=== PATIENT | female | born 1970 | race Caucasian/White ===

== ENCOUNTER 2018-02-09 16:02 | Emergency (ER) | payer OTHER ==
[~2018-02-09] VITALS: Ht 170.2 cm; Wt 72.7 kg
[~2018-02-09 16:02] MED LIST: FLOMAX0.4 MG PO; LINZESS145 MCG PO; PROZAC20 MG PO; SENNA8.6 MG PO; TOPAMAX50 MG PO; VICODIN,LORT1 TABLET PO; WELLBUTRIN75 MG PO; ZOFRAN4 MG PO; zoloft PO
[2018-02-09 16:54] LABS: HEMOGLOBIN 14.5 G/DL (11.9-15.5); MCH 30.2 PG (29.0-34.0); MCHC 34.5 G/DL (30.0-36.0); MCV 87.5 FL (83-99); PLATELET COUNT 184 K/uL (156-360); RBC DIS.WIDTH-CV 12.8 % (11.8-14.6); RBC DIS.WIDTH-SD 41.3 % (39-53); WHITE BLOOD COUNT 9.5 K/uL (4.1-10.2)
[2018-02-09 17:06] LABS: ALBUMIN 4.1 g/dL (3.2-4.8)
[2018-02-09 17:07] LABS: CHLORIDE 112 mEq/L (99-109); POTASSIUM 3.7 mEq/L (3.7-5.4); SODIUM 140 mEq/L (136-147)
[2018-02-09 17:09] LABS: GLUCOSE 115 mg/dL (70-99); TOTAL PROTEIN 6.5 g/dL (6.4-8.3)
[2018-02-09 17:11] LABS: TOTAL BILIRUBIN 0.4 mg/dL (0.0-1.0)
[2018-02-09 17:12] LABS: ALKALINE PHOSPHATASE 52 IU/L (3-129)
[2018-02-09 17:13] LABS: CREATININE 0.8 mg/dL (0.6-1.3); GFR ESTIMATE (CALCULATED) > 59 mL/min/
[2018-02-09 17:14] LABS: AST (GOT) 13 IU/L (2-34); UREA NITROGEN (BUN) 14 mg/dL (9-23)
[2018-02-09 17:15] LABS: ALT (GPT) 9 IU/L (3-49)
[2018-02-09 18:05] LABS: APPEARANCE CLEAR ((CLEAR)); BILIRUBIN NEGATIVE; BLOOD MODERATE; COLOR COLORLESS ((YELLOW)); GLUCOSE (STRIP) NEGATIVE; KETONES NEGATIVE; LEUKOCYTES NEGATIVE; NITRITE NEGATIVE; PROTEIN (STRIP) NEGATIVE; SPECIFIC GRAVITY 1.002 (1.000-1.030); UROBILINOGEN 0.2 MG/DL (0.2-1.0)
[2018-02-09 18:17] LABS: BACTERIA NONE SEEN /HPF; EPITHELIAL CELLS NONE SEEN /HPF; MUCUS NONE SEEN /LPF; RED BLOOD CELLS 0-5 /HPF (0-5); UCUL ADDED? NO; WHITE BLOOD CELLS 0-5 /HPF (0-5)
[2018-02-09] MEDS ORDERED: NORCO 5/3251 TABLET PO (19:29)
[2018-02-09 20:01] VITALS: BP 124/85
[2018-02-10] MEDS ORDERED: ZOFRAN ODT4 MG PO (21:53)
[2018-02-10] MEDS ORDERED: NAPROSYN500 MG PO (21:53)
[2018-02-10] MEDS ORDERED: ALPRAZOLAM0.5 MG PO (23:20)
[2018-02-10] MEDS ORDERED: TOPAMAX200 MG PO (23:21)
[2018-02-10] MEDS ORDERED: BUPROPION XL300 MG PO (23:21)
[2018-02-10] MEDS ORDERED: RIZATRIPTAN10 M1 PO (23:22)
== END 2018-02-09 20:02 | disposition home or self-care (01) ==
LOC: EME 16:02
PROVIDERS: Emergency Medicine Emergency Medical Services
DX: N13.2 Hydronephrosis with renal and ureteral calculous obstruction (principal); R30.0 Dysuria; Z87.442 Personal history of urinary calculi; Z98.51 Tubal ligation status
CPT/HCPCS: 74176; 80053; 81003; 85027; J0780; J2270; J7040

== ENCOUNTER 2018-02-10 18:38 | Inpatient (IN) | payer OTHER ==
[~2018-02-10] VITALS: Ht 170.2 cm; Wt 83.7 kg
[~2018-02-10 18:38] MED LIST changes: +NORCO 5/3251 TABLET PO
[2018-02-10 21:23] LABS: APPEARANCE CLEAR ((CLEAR)); BILIRUBIN NEGATIVE; BLOOD SMALL; COLOR AMBER ((YELLOW)); GLUCOSE (STRIP) NEGATIVE; KETONES 20; LEUKOCYTES NEGATIVE; NITRITE NEGATIVE; PROTEIN (STRIP) 30; SPECIFIC GRAVITY 1.026 (1.000-1.030); UROBILINOGEN 0.2 MG/DL (0.2-1.0)
[2018-02-10 21:26] LABS: BACTERIA RARE /HPF; EPITHELIAL CELLS RARE /HPF; MUCUS TRACE /LPF; RED BLOOD CELLS 0-5 /HPF (0-5)
[2018-02-10] MEDS ORDERED: NAPROSYN500 MG PO (21:53)
[2018-02-10] MEDS ORDERED: ZOFRAN ODT4 MG PO (21:53)
[2018-02-10] MEDS ORDERED: ALPRAZOLAM0.5 MG PO (23:20)
[2018-02-10] MEDS ORDERED: BUPROPION XL300 MG PO (23:21)
[2018-02-10] MEDS ORDERED: TOPAMAX200 MG PO (23:21)
[2018-02-10] MEDS ORDERED: RIZATRIPTAN10 M1 PO (23:22)
[2018-02-10 23:49] LABS: HEMATOCRIT 38.7 % (36.0-46.0); HEMOGLOBIN 13.2 G/DL (11.9-15.5); MCH 30.3 PG (29.0-34.0); MCHC 34.1 G/DL (30.0-36.0); MCV 88.8 FL (83-99); RBC DIS.WIDTH-CV 12.9 % (11.8-14.6); RBC DIS.WIDTH-SD 42.6 % (39-53); RED BLOOD COUNT 4.36 M/uL (3.80-5.20); WHITE BLOOD COUNT 4.5 K/uL (4.1-10.2)
[2018-02-10 23:54] LABS: CHLORIDE 110 mEq/L (99-109); POTASSIUM 4.3 mEq/L (3.7-5.4); SODIUM 140 mEq/L (136-147)
[2018-02-10 23:56] LABS: GLUCOSE 143 mg/dL (70-99)
[2018-02-11] VITALS (8 sets, daily range): BP systolic 90–125; BP diastolic 55–78
[2018-02-11] LABS: GFR ESTIMATE (CALCULATED) 46 mL/min/; UREA NITROGEN (BUN) 13 mg/dL (9-23)
[2018-02-11 00:07] LABS: CREATININE 1.3 mg/dL (0.6-1.3)
[2018-02-11 00:08] LABS: QUANTITATIVE HCG < 4.0 MIU/ML
[2018-02-11 01:34] LABS: PLAT.SUFFICIENCY ADEQUATE
[2018-02-11 01:59] LABS: PLATELET COUNT 80 K/uL (156-360)
[2018-02-11 09:22] LABS: HEMATOCRIT 39.5 % (36.0-46.0); HEMOGLOBIN 13.3 G/DL (11.9-15.5); MCH 29.9 PG (29.0-34.0); MCHC 33.7 G/DL (30.0-36.0); MCV 88.8 FL (83-99); PLATELET COUNT 68 K/uL (156-360); RBC DIS.WIDTH-CV 13.2 % (11.8-14.6); RBC DIS.WIDTH-SD 43.3 % (39-53); RED BLOOD COUNT 4.45 M/uL (3.80-5.20); WHITE BLOOD COUNT 7.9 K/uL (4.1-10.2)
[2018-02-11 09:45] LABS: ALBUMIN 2.9 G/DL (3.2-4.8); ALKALINE PHOSPHATASE 73 IU/L (3-129); ALT (GPT) 11 IU/L (3-49); AST (GOT) 24 IU/L (2-34); CHLORIDE 107 MEQ/L (99-109); CREATININE 1.7 MG/DL (0.6-1.3); GFR ESTIMATE (CALCULATED) 34 mL/min/; GLUCOSE 146 mg/dL (70-99); POTASSIUM 3.5 MEQ/L (3.7-5.4); SODIUM 138 MEQ/L (136-147); TOTAL BILIRUBIN 1.2 MG/DL (0.0-1.0); TOTAL PROTEIN 4.8 G/DL (6.4-8.3)
[2018-02-11 09:51] LABS: ABS NEUTROPHIL COUNT 6.9; ANISOCYTOSIS NONE SEEN; BAND NEUTROPHILS 34.2 % (0-8.0); BURR CELLS 2+; EOSINOPHIL ABS CT 0; LYMPHOCYTES 0.9 % (15.0-45.0); METAMYELOCYTES 8.8 %; MYELOCYTES 3.5 %; PLAT.SUFFICIENCY DECREASED; POIKILOCYTOSIS 2+; SEG.NEUTROPHILS 52.6 % (46.0-76.0); SMUDGE CELLS 0.9
[2018-02-11 10:16] LABS: UREA NITROGEN (BUN) 22 mg/dL (9-23)
[2018-02-12 04:16] VITALS: BP 92/53
[2018-02-12 06:09] LABS: HEMATOCRIT 33.5 % (36.0-46.0); HEMOGLOBIN 11.4 G/DL (11.9-15.5); MCH 29.7 PG (29.0-34.0); MCV 87.2 FL (83-99); PLATELET COUNT 52 K/uL (156-360); RBC DIS.WIDTH-CV 13.3 % (11.8-14.6); RBC DIS.WIDTH-SD 42.2 % (39-53); RED BLOOD COUNT 3.84 M/uL (3.80-5.20)
[2018-02-12 06:18] LABS: CHLORIDE 111 MEQ/L (99-109); CREATININE 1.3 MG/DL (0.6-1.3); GFR ESTIMATE (CALCULATED) 46 mL/min/; MAGNESIUM 1.5 mg/dl (1.3-2.7); POTASSIUM 3.5 MEQ/L (3.7-5.4); SODIUM 138 MEQ/L (136-147); UREA NITROGEN (BUN) 26 mg/dL (9-23)
[2018-02-12 06:19] LABS: GLUCOSE 99 mg/dL (70-99)
[2018-02-12 07:04] LABS: ABS NEUTROPHIL COUNT 9.4; ANISOCYTOSIS 1+; BAND NEUTROPHILS 37.4 % (0-8.0); BURR CELLS 3+; EOSINOPHIL ABS CT 0; HEMATOLOGY COMMENT 1 SN; LYMPHOCYTES 2.6 % (15.0-45.0); METAMYELOCYTES 0.9 %; MONOCYTES 2.6 % (0-9.0); OVALOCYTES 1+; PLAT.SUFFICIENCY DECREASED; POIKILOCYTOSIS 3+; POLYCHROMASIA 1+; SEG.NEUTROPHILS 56.5 % (46.0-76.0); TOX.VACUOLIZATION 1+; TOXIC GRANULATION 2+
[2018-02-12 08:00] VITALS: BP 98/63
[2018-02-12 08:19] LABS: FOLIC ACID (FOLATE) 4.3 NG/ML (5.0-22.0)
[2018-02-12 12:02] VITALS: BP 112/74
[2018-02-12 15:57] VITALS: BP 129/86
[2018-02-12 19:28] VITALS: BP 133/83
[2018-02-12 21:41] LABS: Heparin Induced Plt Ab Negative (Negative)
[2018-02-13] VITALS (7 sets, daily range): BP systolic 125–149; BP diastolic 67–93
[2018-02-13 05:26] LABS: HEMATOCRIT 33.6 % (36.0-46.0); HEMOGLOBIN 11.4 G/DL (11.9-15.5); MCH 29.2 PG (29.0-34.0); MCHC 33.9 G/DL (30.0-36.0); MCV 86.2 FL (83-99); PLATELET COUNT 65 K/uL (156-360); RBC DIS.WIDTH-CV 13.2 % (11.8-14.6); RBC DIS.WIDTH-SD 41.6 % (39-53); WHITE BLOOD COUNT 8.8 K/uL (4.1-10.2)
[2018-02-13 06:12] LABS: CHLORIDE 110 MEQ/L (99-109); GLUCOSE 93 mg/dL (70-99); MAGNESIUM 1.7 mg/dl (1.3-2.7); POTASSIUM 3.2 MEQ/L (3.7-5.4); SODIUM 138 MEQ/L (136-147); UREA NITROGEN (BUN) 13 mg/dL (9-23)
[2018-02-13 06:19] LABS: CREATININE 0.8 MG/DL (0.6-1.3); GFR ESTIMATE (CALCULATED) > 59 mL/min/
[2018-02-13 08:02] LABS: UFH SRA Result Negative (Negative)
[2018-02-13 14:04] LABS: BASOPHIL (%) 0.1 % (0-1); EOSINOPHIL (%) 0.5 % (0-5); IMMATURE GRANULOCYTE (%) 0.2 % (0.0-0.7); LYMPHOCYTE (%) 7.7 % (15-42); LYMPHOCYTE COUNT 0.7 K/uL (1.0-2.8); MONOCYTE COUNT 0.6 K/uL (0-0.8); NEUTROPHIL (%) 84.5 % (45-76); NEUTROPHIL COUNT 7.5 K/uL (1.8-6.4); PLAT.SUFFICIENCY DECREASED
[2018-02-14 03:49] VITALS: BP 138/77
[2018-02-14 06:16] LABS: ALBUMIN 2.6 G/DL (3.2-4.8); CHLORIDE 111 MEQ/L (99-109); CREATININE 0.7 MG/DL (0.6-1.3); GFR ESTIMATE (CALCULATED) > 59 mL/min/; GLUCOSE 98 mg/dL (70-99); MAGNESIUM 1.5 mg/dl (1.3-2.7); PHOSPHORUS 1.8 mg/dL (2.5-4.9); POTASSIUM 3.6 MEQ/L (3.7-5.4); SODIUM 139 MEQ/L (136-147); UREA NITROGEN (BUN) 8 mg/dL (9-23)
[2018-02-14 07:09] LABS: BASOPHIL (%) 0.4 % (0-1); EOSINOPHIL (%) 3.8 % (0-5); EOSINOPHIL COUNT 0.3 K/uL (0-0.3); HEMATOCRIT 33.1 % (36.0-46.0); HEMOGLOBIN 11.5 G/DL (11.9-15.5); IMMATURE GRANULOCYTE (%) 0.6 % (0.0-0.7); LYMPHOCYTE (%) 13.9 % (15-42); MCH 30.5 PG (29.0-34.0); MCHC 34.7 G/DL (30.0-36.0); MCV 87.8 FL (83-99); MONOCYTE COUNT 0.9 K/uL (0-0.8); NEUTROPHIL (%) 68.3 % (45-76); NEUTROPHIL COUNT 4.7 K/uL (1.8-6.4); PLATELET COUNT 75 K/uL (156-360); RBC DIS.WIDTH-CV 13.8 % (11.8-14.6); RBC DIS.WIDTH-SD 44.3 % (39-53); RED BLOOD COUNT 3.77 M/uL (3.80-5.20); WHITE BLOOD COUNT 6.8 K/uL (4.1-10.2)
[2018-02-14 08:49] VITALS: BP 128/90
[2018-02-14] MEDS ORDERED: NABI650T PO (10:33)
[2018-02-14] MEDS ORDERED: FOLIC ACID1 MG PO (10:38)
[2018-02-14] MEDS ORDERED: CEFTIN500 MG PO (10:44)
[2018-02-14] MEDS ORDERED: MAG-OXIDE400 MG PO (10:45)
[2018-02-14] MEDS ORDERED: Tums,OsCal PO (10:45)
[2018-02-14] MEDS ORDERED: TRAMADOL HCL50 MG PO (10:45)
[2018-02-14 12:19] VITALS: BP 139/94
[2018-02-14 15:56] VITALS: BP 136/91
== END 2018-02-14 18:47 | disposition home or self-care (01) | DRG 872 ==
LOC: EME 18:38 → EDOF 02-11 00:24 → ENRESERV 02-11 00:26 → 4SOUTH 02-11 01:17
PROVIDERS: Hospitalist; Internal Medicine; Internal Medicine Hematology & Oncology; Nurse Practitioner Family; Physician Assistant
DX: A41.9 Sepsis, unspecified organism (principal); N13.6 Pyonephrosis; E87.2 Acidosis; N17.9 Acute kidney failure, unspecified; G43.909 Migraine, unspecified, not intractable, without status migrainosus; E87.6 Hypokalemia; D69.6 Thrombocytopenia, unspecified; E83.51 Hypocalcemia; F32.9 Major depressive disorder, single episode, unspecified; K59.09 Other constipation; F41.9 Anxiety disorder, unspecified; Z88.5 Allergy status to narcotic agent; Z88.8 Allergy status to other drugs, medicaments and biological substances; Z87.442 Personal history of urinary calculi; R31.0 Gross hematuria; E86.0 Dehydration; E83.39 Other disorders of phosphorus metabolism
CPT/HCPCS: 74018; 74176; 80048; 80053; 80069; 81003; 82306; 82330; 82607; 82746; 82948; 83605; 83735; 84702; 85025; 85027; 86022 90; 87040; 87086; 99281; 99285; C1769; C2625; J0131; J0696; J0780; J1100; J1170; J1650; J1885; J2250; J2270; J2405; J3010; J3475; J7030; J7040; J7120